=== PATIENT | male | born 1985 | race Caucasian/White ===

== ENCOUNTER → 2017-03-22 | Day surgery (SDC) | payer OTHER ==
[~2017-03-22] MED LIST: KETOROLAC TROMETHAMINE 30 MG/ML (IVP) VIAL IV PUSH ONE; MIDAZOLAM HCL 2 MG/2 ML VIAL ONE; ONDANSETRON HCL 4 MG/2 ML VIAL IV PUSH ONE; PROPOFOL 200 MG/20 ML AMP IV ONE; SODIUM CHLOR 0.9% 1000 ML INJ 1,000 ML IV ONE; ceFAZolin INJ 1,000 MG VIAL ONE; oxyCODONE/ACETAMINOPHEN 5 MG/325 MG TAB ONE
--- NOTE | 2017-03-22 11:28 | TN ---
cc: TIAGO LOPES M.D. DATE OF SURGERY 03/22/2017 PREOPERATIVE DIAGNOSIS Right knee lateral meniscus tear and lateral meniscus cyst. POSTOPERATIVE DIAGNOSIS 1. Right knee bucket-handle tear lateral meniscus 2. Right knee lateral meniscal cyst 3. 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 Right knee arthroscopy with a partial lateral meniscectomy. 2. Right knee arthroscopic excision of the lateral meniscal Cyst. 3. Right knee arthroscopic chondroplasty of the patellofemoral joint. SURGEON Tiago Lopes MD ANESTHESIA General via laryngeal mask augmented by local infiltration FLUID REPLACEMENT 600 cc of crystalloid TOURNIQUET TIME 28 minutes at 300 mmHg. SPECIMEN No specimens were sent. COUNTS All counts were correct. COMPLICATIONS There were no intraoperative complications. IMPLANTS: None INDICATIONS FOR THE PROCEDURE Milton is a 32-year-old gentleman who sustained a twisting injury to his right knee at work in August of 2016. He was treated conservatively at first and had failure to have resolution of his symptoms and ultimately was being taken to the operating room as a result of persistent pain, limitations in motion and mechanical symptoms within the knee. He was aware of the risks, benefits, potential complications and limitations of the procedure and full written informed consent was obtained. We had approval from his compensation carrier for the surgery as well. DESCRIPTION OF PROCEDURE After the patient was appropriately identified in the holding area, he had correctly marked his right knee and I had initialed it as well. He was taken into the operating suite where he was placed under general laryngeal mask anesthetic by Dr. Bashir. Here, the right leg had a well-padded tourniquet applied high on the thigh and then the right leg was prepped with alcohol and Hibiclens and then draped in the normal standard fashion. An impervious stockinette was applied on the foot all the way up to the midcalf level and the leg was elevated. A time-out was held confirming the right leg was the appropriate surgical site. The team was in agreement and the case was now begun. The leg was exsanguinated with an Spencer wrap and the tourniquet was then raised to 300 mmHg. Standard anteromedial and anterolateral joint line portals were established under direct visualization. Inflow was initiated after minimal effusion was evacuated. There was moderate chondromalacia of the central portion of the patella primarily grade 2B and 3A. A limited chondroplasty was necessary to remove the fragments that were quite unstable. There was no chondroplasty necessary on the trochlear side. The patella did seem to track centrally throughout a range of motion. I went ahead now and addressed the medial compartment. There was no evidence of any medial meniscus tear or significant chondromalacia of the femur or the tibia and the medial compartment. There was no evidence of any significant synovitis or loose bodies in the gutter. The intercondylar notch was now explored. There was some scar over the anterior cruciate ligament and there was what appeared to be few fibers that were quite superficial that might have been ruptured. I went ahead and began debriding them and I realize that they were actually being tethered into the lateral compartment. In reality, there was a relatively thin, but complete bucket-handle tear of the lateral meniscus that went through the lateral compartment and extended into the intercondylar notch. I went ahead and began exploring this area more thoroughly and debrided the bucket-handle tear of the lateral meniscus and then noticed that there was a fairly good-sized meniscal cyst that was adherent to the bucket-handle tissue. I went ahead and fully debrided this with an oscillating shaver. The meniscal remnant was quite large and was fully stable to probing. There was a horizontal cleavage component to it posteriorly, but neither leaflet was unstable. The lateral compartment cartilage showed very mild chondromalacia on the tibial side and there was also the appearance of a slight groove seen along the lateral tibial plateau that could have been present when the bucket-handle tear had not fully subluxed. At this time, the lateral gutter was explored. No further pathology was identified. The knee was then thoroughly irrigated, suctioned decompressed and I explored all the compartments once again and found no further debris. The knee was then suctioned decompressed one last time. The instruments were removed. The portals were closed with 3-0 nylon simple sutures and then 20 cc of 0.25% Marcaine with epinephrine were then infiltrated intraarticularly and subcutaneously for postop pain relief. At this time, the wounds were closed with 3-0 nylon simple sutures. They were dressed with Xeroform, 4x4s, ABD and Spencer wrap was applied to the leg. He was awoken from anesthesia. The tourniquet had been let down. He had brisk return of capillary refill on palpable dorsalis pedis and posterior tibial pulses. Appropriate postoperative instructions have been given. Tiago Lopes MD Electronically Signed Tiago Lopes MD SIS/DJL /11:05 AM /11:18 AM MTDD
== END | disposition home or self-care (01) ==
LOC: ESDC 07:57
PROVIDERS: ATTEND Orthopaedic Surgery Sports Medicine
DX: S83.251A Bucket-handle tear of lateral meniscus, current injury, right knee, initial encounter (principal); M22.41 Chondromalacia patellae, right knee
CPT/HCPCS: 01400; 29881; J0690; J1885; J2250; J2405; J3010; J7030